=== PATIENT | female | born 1965 | race Caucasian/White ===

== ENCOUNTER 2020-11-26 05:58 | Day surgery (SDC) | payer MEDICAID ==
[~2020-11-26] VITALS: Ht 165.1 cm; Wt 90.9 kg
[2020-11-26 06:21] LABS: BASOPHILS 0.2 % (0-2); EOSINOPHILS 4.7 % (0-7); HEMATOCRIT 44.7 % (36.0-48.0); HEMOGLOBIN 14.7 g/dL (12-16); IMMATURE GRANULOCYTES 0.4 % (0-5); LYMPHOCYTE ABS# 2.75 10x3/uL (1.18-3.74); LYMPHOCYTES 24.6 % (15-50); MCH 30.1 pg (26.0-34.0); MCHC 32.9 g/dL (31.0-37.0); MCV 91.6 fL (80.0-100.0); MEAN PLATELET VOLUME 10.4 fL (7.4-10.4); MONOCYTES 9.5 % (2-11); NEUTROPHIL ABS# 6.76 10x3/uL (1.56-6.13); NEUTROPHILS 60.6 % (40-80); RBC 4.88 10x6/uL (4.00-5.40); RDW 13.9 % (11.5-14.5); WBC 11.2 10x3/uL (4.8-10.8)
[2020-11-26 06:33] LABS: PLATELET COUNT 384 10x3/uL (130-400)
[2020-11-26] MEDS ORDERED: KLONOPIN1 MG ×2 (06:34→06:37)
[2020-11-26] MEDS ORDERED: PERCOCET 10-321 EAC1 (06:34)
[2020-11-26] MEDS ORDERED: LIPITOR40 MG ×2 (06:35→06:38)
[2020-11-26] MEDS ORDERED: DOXEPIN HCL75 MG (06:35)
[2020-11-26] MEDS ORDERED: GLUCOPHAGE500 MG (06:36)
[2020-11-26] MEDS ORDERED: PEPCID40 MG (06:36)
[2020-11-26] MEDS ORDERED: ZETIA10 MG ×2 (06:36→06:37)
[2020-11-26] MEDS ORDERED: CHLORTHALIDONE25 MG PO (06:36)
[2020-11-26] MEDS ORDERED: LEVOTHYROXINE150 MCG (06:36)
[2020-11-26 06:37] LABS: ANION GAP 13.1 mmol/L (8-16); CALCIUM 9.4 mg/dL (8.5-10.1); CARBON DIOXIDE 29.2 mmol/L (21.0-32.0); POTASSIUM - SERUM 4.3 mmol/L (3.5-5.1)
[2020-11-26] MEDS ORDERED: GEODON20 MG ×2 (06:37→06:38)
[2020-11-26] MEDS ORDERED: ESTRACE 0.0142.5 GM (06:37)
[2020-11-26 06:40] VITALS: BP 100/52; Ht 165.1 cm; Wt 90.9 kg
[2020-11-26] MEDS ORDERED: METOPROLOL TART25 MG (06:44)
--- NOTE | 2020-11-26 09:55 | NUR ---
CALLED DR CURRIE'S OFFICE TO SCHEDULE F/U APPT. 3D ANIMATOR ASKED TO FAX ORDER INSTEAD. COMPLETED BY THIS NURSE
--- NOTE | 2020-11-26 10:00 | NUR ---
PIV REMOVED WITH CATHETER INTACT, PT DRESSING, SPOUSE IN ROOM. 1006 PT ESCORTED VIA WC BY THIS NURSE TO POV WITH SPOUSE DRIVING. ALL BELONGINGS WITH SPOUSE AND PT.
--- NOTE | 2020-11-26 14:46 | OP ---
PATIENT NAME: ASHWIN JENNINGS MEDICAL RECORD: [id number] :63 LOCATION:D[facility]OPS ADMISSION DATE: SURGEON: KOSTA CURRIE MD DATE OF OPERATION: 11/26/2020 PROCEDURES: EGD and colonoscopy. PREOPERATIVE DIAGNOSES: Abdominal pain, dysphagia, family history of colon cancer. MEDICATION: Propofol per anesthesia. DESCRIPTION OF EGD PROCEDURE: The patient was made comfortable in the left lateral position. The endoscope was advanced through the mouth and advanced to the second part of the duodenum. The proximal and mid esophagus were normal. In the distal esophagus was a narrowing consistent with a mild esophageal stricture. This was dilated with an 18, 19, 20 mm balloon. In the gastric body was erythema consistent with gastritis. Random gastric biopsies were taken. The duodenum was normal. Small bowel biopsies were taken. There was also a 2-cm area of columnar metaplasia in the distal esophagus suspicious for Diaz's esophagus. Distal esophageal biopsies were taken. FINAL DIAGNOSES: Biopsies taken in the distal esophagus to evaluate for Diaz's esophagus, mild esophageal stricture dilated with an 18, 19 and 20 mm balloon. Gastritis, biopsies taken. Small bowel biopsies taken. PLAN: Check histology results. Avoid NSAIDs. Continue proton pump inhibitor. DESCRIPTION OF COLONOSCOPY PROCEDURE: Colonoscopy was performed. The colonoscope was inserted through the rectum and advanced to the cecum, identified by the ileocecal valve and the appendiceal orifice. The quality of the prep was good. There were 2 small sigmoid polyps visualized. These were removed with polypectomy, cold biopsy forceps. Of note, the prep was fair; therefore, I would recommend repeat colonoscopy in 1 year. FINAL DIAGNOSIS: Two small polyps, fair prep. PLAN: Check histology results, advance diet. Repeat colonoscopy in 1 year. TRANSINT:[id number] Voice Confirmation ID: [id number] DOCUMENT ID: [id number] KOSTA CURRIE MD at 1446 CC: [id number] DICTATION DATE: 11/26/20940 CREDIT SUPPORT COUNSELOR: 11/26/2055 [facility] 11/26/[address] [id number]
== END 2020-11-26 10:06 | disposition home or self-care (01) ==
LOC: D.OPS 05:58
PROVIDERS: Anesthesiology; ATTEND Internal Medicine Gastroenterology
DX: R10.9 Unspecified abdominal pain (principal); R13.10 Dysphagia, unspecified; Z80.0 Family history of malignant neoplasm of digestive organs; K63.5 Polyp of colon; R10.13 Epigastric pain; Z12.11 Encounter for screening for malignant neoplasm of colon